=== PATIENT | female | born 1960 | race Caucasian/White ===

== ENCOUNTER → 2021-06-15 | Outpatient (CLI) | payer MEDICARE | LOC: HEART 5 15:32 | DX: J44.9 Chronic obstructive pulmonary disease, unspecified (principal) | CPT/HCPCS: 94060; 94729 ==

== ENCOUNTER → 2021-11-10 | Outpatient (CLI) | payer MEDICARE | LOC: KOH-I 11:30 | DX: Z87.891 Personal history of nicotine dependence (principal) | CPT/HCPCS: 71271 ==